=== PATIENT | female | born 1995 | race African-American/Black ===

== ENCOUNTER 2019-07-05 00:01 | Inpatient (IN) ==
[2019-07-05] MEDS ORDERED: MEPERIDINE 25 MG/1 ML VIAL IV PRN (00:09)
[2019-07-05] MEDS ORDERED: DINOPROSTONE 10 MG VAG.INSERT VAG ONE ×2 (00:09→00:17)
[2019-07-05] MEDS ORDERED: MEPERIDINE 50 MG/1 ML VIAL IV PRN (00:09)
[2019-07-05] MEDS ORDERED: ONDANSETRON 4 MG/2 ML VIAL IV PRN (00:09)
[2019-07-05] MEDS ORDERED: BUTORPHANOL 2 MG/ML VIAL IV PRN (00:09)
[2019-07-05 00:37] LABS: Basophils % 0.2 % (0.0-0.8); Eosinophils # 0.1 10*3/uL (0.0-0.87); Eosinophils % 0.5 % (0.00-10.9); Hematocrit 26.8 VOL% (35.7-47.0); Hemoglobin 8.5 GM/DL (12.0-16.0); Immature Granulocytes % 0.9 %; Immature Granulocytes Absolute 0.13 #; Lymphocytes % 13.2 % (21.3-54.2); Mean Corpuscular HGB Conc 31.7 GM/DL (32-36); Mean Corpuscular Volume 84.8 FL (87-102); Mean Platelet Volume 9.1 FL (9.6-12.0); Monocytes % 6.9 % (1.7-12.7); Neutrophils % 78.3 % (38.7-73.9); Platelet Count 325 T/CUMM (130-400); Red Blood Count 3.16 MC/CUMM (3.8-5.5); Red Cell Distribution Width 14.2 % (9.3-17.3)
[2019-07-05 01:24] LABS: Alanine Aminotransferase 10 U/L (13-56); Albumin 2.6 G/DL (3.4-5.0); Alkaline Phosphatase 167 U/L (45-117); Aspartate Amino Transferase 11 U/L (0-37); Bilirubin,Total < 0.39 MG/DL (0.2-1.0); Blood Urea Nitrogen 5 MG/DL (7-18); Estimated Glom Filtration Rate 178 ML/MIN; Glucose 114 MG/DL (74-106); Osmolality,Calculated 267.1 MOS/KG (273-304); Total Protein 7.2 G/DL (6.4-8.3)
[2019-07-05] MEDS: LACTATED RINGERS 1,000 ML IV SCH ×2 (06:30→13:05)
[2019-07-05] MEDS ORDERED: FAMOTIDINE 20 MG/2 ML VIAL IV ONE (15:16)
[2019-07-05] MEDS ORDERED: CITRIC ACID/SODIUM CITRATE 30 ML UDCUP PO ONE (15:16)
[2019-07-05] MEDS ORDERED: ceFAZolin 2,000 MG in PREMIX 1 EACH IV ONE (15:16)
[2019-07-05] MEDS ORDERED: OXYTOCIN/LR 20 UNIT/1,000 ML BAG IV ONE (15:17)
[2019-07-05] MEDS ORDERED: DEXAMETHASONE 4 MG/1 ML VIAL ONE (15:52)
[2019-07-05] MEDS ORDERED: ROPIVACAINE 0.5% 30 ML VIAL ONE (15:52)
[2019-07-05] MEDS ORDERED: TISSUE ADHESIVE 1 EACH APPLICATOR TOP ONE (16:48)
[2019-07-05 16:51] LABS: Cord Venous Blood HCO3 15.9 MMOL/L; Cord Venous Blood PCO2 69.4 MMHG
[2019-07-05 16:53] LABS: Cord Venous Blood PO2 16.6
[2019-07-05 17:03] LABS: Apearance,Urine CLEAR (Clear); Bilirubin,Urine Negative (Negative); Blood, Urine Negative (Negative); Glucose,Urine (UA) Negative (Negative); Ketones,Urine Negative (Negative); Mucus,Urine Occasional /LPF (Occasional); Nitrite,Urine Negative (Negative); Protein,Urine Negative; Squamous Epithelial Cell,Urine Occasional /HPF (0-10); Urine Color Yellow (Yellow); Urine Specific Gravity 1.011 (1.001-1.035); Urine Urobilinogen < 2.0 EU/DL (0.2-1.0)
[2019-07-05] MEDS ORDERED: fentaNYL 100 MCG/2 ML VIAL ONE (17:15)
[2019-07-05] MEDS ORDERED: PHENYLEPHRINE 1 MG/10 ML SYRINGE IV ONE (17:15)
[2019-07-05] MEDS ORDERED: BUPIVACAINE SPINAL 0.75% 2 ML AMP SPINAL ONE (17:16)
[2019-07-05] MEDS ORDERED: MORPHINE 10 MG/10 ML VIAL ONE (17:16)
[2019-07-05] MEDS: KETOROLAC 30 MG/1 ML VIAL IV SCH (20:13)
[2019-07-05] MEDS ORDERED: RHO(D) IMMUNE GLOBULIN 300 MCG SYRINGE IM ONE (21:30)
[2019-07-05] MEDS ORDERED: SIMETHICONE CHEW 80 MG TABLET PO PRN (21:30)
[2019-07-05] MEDS ORDERED: ACETAMINOPHEN 325 MG TABLET PO PRN (21:30)
[2019-07-05] MEDS: DOCUSATE SODIUM 100 MG CAPSULE PO SCH (23:57)
[2019-07-06] MEDS: ceFAZolin 1,000 MG in SYRINGE 1 EACH IV SCH ×2 (00:42→10:00)
[2019-07-06] MEDS: KETOROLAC 30 MG/1 ML VIAL IV SCH ×3 (02:11→12:10)
[2019-07-06 04:58] LABS: Basophils % 0.2 % (0.0-0.8); Hematocrit 24.4 VOL% (35.7-47.0); Hemoglobin 7.4 GM/DL (12.0-16.0); Immature Granulocytes % 0.8 %; Immature Granulocytes Absolute 0.16 #; Lymphocytes # 1.5 10*3/uL (1.4-4.0); Lymphocytes % 7.5 % (21.3-54.2); Mean Corpuscular HGB Conc 30.3 GM/DL (32-36); Mean Corpuscular Volume 87.1 FL (87-102); Mean Platelet Volume 9.1 FL (9.6-12.0); Monocytes % 6.8 % (1.7-12.7); Neutrophils % 84.7 % (38.7-73.9); Platelet Count 276 T/CUMM (130-400); Red Cell Distribution Width 14.1 % (9.3-17.3)
[2019-07-06] MEDS: diphenhydrAMINE CAP 25 MG CAPSULE PO PRN ×2 (05:51→10:30)
[2019-07-06] MEDS ORDERED: ceFAZolin 1,000 MG in SYRINGE 1 EACH IV ONE (09:57)
[2019-07-06] MEDS: MAGNESIUM HYDROXIDE SUSP 30 ML UDCUP PO PRN ×2 (10:00→21:50)
[2019-07-06] MEDS: DOCUSATE SODIUM 100 MG CAPSULE PO SCH ×2 (10:00→21:50)
[2019-07-06] MEDS: MULTIVITAMIN (PRENATAL) TABLET PO SCH (10:00)
[2019-07-06] MEDS: IBUPROFEN 800 MG TABLET PO SCH ×2 (10:20→18:36)
[2019-07-06] MEDS ORDERED: SODIUM CHLORIDE 0.9% 100 ML IV ONE (10:28)
[2019-07-06] MEDS: IRON (CARBONYL)/VIT C/B12/FA TABLET PO SCH (13:39)
[2019-07-06] MEDS ORDERED: IBUPROFEN 800 MG TABLET PO SCH (17:00)
[2019-07-07] MEDS: IBUPROFEN 800 MG TABLET PO SCH ×2 (02:10→09:48)
[2019-07-07] MEDS: IRON (CARBONYL)/VIT C/B12/FA TABLET PO SCH (09:48)
[2019-07-07] MEDS: MULTIVITAMIN (PRENATAL) TABLET PO SCH (09:48)
[2019-07-07] MEDS: DOCUSATE SODIUM 100 MG CAPSULE PO SCH (09:49)
[2019-07-07 10:51] VITALS: BP 122/66
[2019-07-07] MEDS ORDERED: INFLUENZA VIRUS VACCINE 0.5 ML SYRINGE IM ONE (11:43)
[2019-07-07] MEDS ORDERED: DIPH/TET/ACEL PERT BOOSTER VACCINE 0.5 ML VIAL IM ONE (11:43)
== END 2019-07-07 12:50 | disposition home health service (06) | DRG 540 ==
LOC: N.LDOUT 00:01 → N.LD 00:02 → N.OB 21:23
PROVIDERS: ADMIT Obstetrics & Gynecology; ATTEND Obstetrics & Gynecology
PROC: LDCSECT (ICD-10-PCS; 2019-07-05 16:00)